=== PATIENT | male | born 1990 | race Caucasian/White ===

== ENCOUNTER 2017-06-23 22:44 | Emergency (ER) | payer OTHER ==
[~2017-06-23] VITALS: Ht 172.7 cm; Wt 70.3 kg
[2017-06-23] MEDS ORDERED: cefTRIAXone IM 1 GM VIAL IM ONE ×2 (23:15→23:42)
[2017-06-23] MEDS ORDERED: KETOROLAC 60 MG/2 ML VIAL. IM ONE ×2 (23:15→23:41)
[2017-06-23] MEDS ORDERED: ALPRAZolam 0.5 MG TABLET PO ONE (23:15)
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
[2017-06-23] MEDS ORDERED: ALPRAZolam 0.25 MG TABLET ONE (23:41)
[2017-06-24] MEDS ORDERED: SILV20CR14 TP (00:28)
[2017-06-24] MEDS ORDERED: ALPR0.5T6 PO (00:28)
[2017-06-24] MEDS ORDERED: silver sulfADIAZINE 1% CREAM 50GM JAR. TP ONE ×2 (00:30→00:35)
[2017-06-24 01:00] VITALS: BP 128/70
== END 2017-06-24 01:05 | disposition home or self-care (01) ==
LOC: ER 22:44
DX: T23.231A Burn of second degree of multiple right fingers (nail), not including thumb, initial encounter (principal); T23.002A Burn of unspecified degree of left hand, unspecified site, initial encounter; F17.210 Nicotine dependence, cigarettes, uncomplicated; X10.2XXA Contact with fats and cooking oils, initial encounter; Y93.89 Activity, other specified; Y99.8 Other external cause status; Y92.89 Other specified places as the place of occurrence of the external cause
CPT/HCPCS: 16020; 96372; 99285; J0696; J1885

== ENCOUNTER 2017-10-15 19:50 | Emergency (ER) | payer OTHER ==
[~2017-10-15] VITALS: Ht 172.7 cm; Wt 65.8 kg
[2017-10-15 19:50] VITALS: BP 126/66
[~2017-10-15 19:50] MED LIST: ALPR0.5T6 PO; SILV20CR14 TP
--- NOTE | 2017-10-15 19:53 | ED.ADGEN ---
Past History Past Medical History: No Pertinent History Alcohol Use: Occasionally Drug Use: None Adult General Chief Complaint Chief Complaint " I ve had MRSA before.. and I got these two bug bites.. lt hand.. but the worse one is on my thigh...Lt. .." HPI HPI Patient is a 27 year old male who presents with cellulitis of Lt 5th MCP joint and Lt Thigh. Pt. stated area cellulitis colitis started with an insect bite. Patient has had MRSA... No striations or adenopathy. He denies immunosuppression. Patient states his tetanus is up-to-date as of 2 years ago.. Patient does smoke. No recent travel. No ill contacts. Review of Systems Review of Systems Constitutional: Denies fever or chills [] Eyes: Denies change in visual acuity, redness, or eye pain [] HENT: Denies nasal congestion or sore throat [] Respiratory: Denies cough or shortness of breath [] Cardiovascular: No additional information not addressed in HPI [] GI: Denies abdominal pain, nausea, vomiting, bloody stools or diarrhea [] : Denies dysuria or hematuria [] Musculoskeletal: Denies back pain or joint pain [] Integument: Denies rash . Two areas skin lesions and cellulitis. Neurologic: Denies headache, focal weakness or sensory changes [] Endocrine: Denies polyuria or polydipsia [] All other systems were reviewed and found to be within normal limits, except as documented in this note. Family History Family History Non-contributory Current Medications Current Medications Current Medications Medications (Trade) Dose Ordered Sig/Tirso Start Time Stop Time Status Last Admin Dose Admin Ceftriaxone Sodium (Rocephin Im) 1 gm 1X ONCE 10/15/17 21:00 10/15/17 21:01 DC 10/15/17 21:02 1 GM Trimethoprim/ Sulfamethoxazole (Bactrim Ds) 1 tab 1X ONCE 10/15/17 21:00 10/15/17 21:01 DC 10/15/17 21:01 1 TAB Allergies Allergies Allergies Coded Allergies Type Severity Reaction Last Updated Verified No Known Drug Allergies 10/15/17 No Physical Exam Physical Exam Constitutional: Well developed, well nourished, no acute distress, non-toxic appearance. [] HENT: Normocephalic, atraumatic, bilateral external ears normal, oropharynx moist, no oral exudates, nose normal. [] Eyes: PERRLA, EOMI, conjunctiva normal, no discharge. [] Neck: Normal range of motion, no tenderness, supple, no stridor. [] Cardiovascular:Heart rate regular rhythm, no murmur [] Lungs & Thorax: Bilateral breath sounds equal with scattered wheezes on auscultation [] Abdomen: Bowel sounds normal, soft, no tenderness, no masses, no pulsatile masses. [] Skin: Warm, dry, no erythema, no rash. Two lesions as per HPI Back: No tenderness, no CVA tenderness. [] Extremities: No tenderness, no cyanosis, no clubbing, ROM intact, no edema. [] Neurologic: Alert and oriented X 3, normal motor function, normal sensory function, no focal deficits noted. [] Psychologic: Affect normal, judgement normal, mood normal. [] Current Patient Data Vital Signs Vital Signs Date Time Temp Pulse Resp B/P (MAP) Pulse Ox O2 Delivery O2 Flow Rate FiO2 10/15/17 19:50 97.9 107 20 98 Room Air EKG EKG [] Radiology/Procedures Radiology/Procedures [] Course & Med Decision Making Course & Med Decision Making Pertinent Labs and Imaging studies reviewed. (See chart for details) Bactrim DS twice a day x 10 days. Polysporin 4 x days. Must follow up with primary. Encourage pt to stop smoking. [] Final Impression Final Impression 1. MRSA- suspect 2. Insect Bite 3. Cellulitis[] Problems: Dragon Disclaimer Dragon Disclaimer This electronic medical record was generated, in whole or in part, using a voice recognition dictation system. SAMUEL KLINE MD Oct 15, 2017 19:52
[2017-10-15] MEDS ORDERED: SULF1TAB24 PO (20:36)
[2017-10-15] MEDS ORDERED: SMZ/TMP 800/160MG TABLET. PO ONE (21:00)
[2017-10-15] MEDS ORDERED: cefTRIAXone IM 1 GM VIAL IM ONE (21:00)
== END 2017-10-15 21:09 | disposition home or self-care (01) ==
LOC: ER 19:50
DX: L03.116 Cellulitis of left lower limb (principal); S70.362A Insect bite (nonvenomous), left thigh, initial encounter; S60.467A Insect bite (nonvenomous) of left little finger, initial encounter; Z86.14 Personal history of Methicillin resistant Staphylococcus aureus infection; W57.XXXA Bitten or stung by nonvenomous insect and other nonvenomous arthropods, initial encounter; Y93.89 Activity, other specified; Y99.8 Other external cause status; Y92.89 Other specified places as the place of occurrence of the external cause
CPT/HCPCS: 96372; 99283; J0696

== ENCOUNTER 2018-10-06 15:39 | Emergency (ER) | payer SELFPAY ==
[~2018-10-06] VITALS: Ht 325.1 cm; Wt 65.8 kg
[~2018-10-06 15:39] MED LIST changes: +SULF1TAB24 PO
[2018-10-06 15:54] VITALS: BP 141/74
[2018-10-06] MEDS ORDERED: CLINDAMYCIN 900 MG/6 ML VIAL. IM ONE (16:00)
[2018-10-06] MEDS ORDERED: DEXAMETHASONE SOD PHOS 10 MG/ML VIAL IM ONE (16:00)
[2018-10-06] MEDS ORDERED: DEXAMETHASONE SOD PHOS 10 MG/ML VIAL ONE (16:07)
[2018-10-06] MEDS ORDERED: CLINDAMYCIN 900MG PREMIX 50 ML IV ONE ×2 (16:12→16:15)
[2018-10-06] MEDS ORDERED: DEXAMETHASONE SOD PHOS 10 MG/ML VIAL IV ONE (16:15)
[2018-10-06] MEDS ORDERED: SULF1TAB24 PO (16:28)
[2018-10-06] MEDS ORDERED: ACET-704 PO (16:28)
--- NOTE | 2018-10-06 16:29 | PHYS DOC ---
Past History Past Medical History: No Pertinent History Past Surgical History: No Surgical History Alcohol Use: None Drug Use: None Adult General Chief Complaint Chief Complaint: FACE PROBLEM HPI HPI Patient is a 28-year-old male who presents with complaint of infection to his left cheek. Patient states that he has a history of staph infection in the past and he believes that he has a staph infection again. He denies any fever. He states that the infection started 2 days ago and had gotten much worse today. He rates pain as being moderate. He denies any nausea or vomiting. Review of Systems Review of Systems Constitutional: Denies fever or chills [] Respiratory: Denies cough or shortness of breath [] Cardiovascular: No additional information not addressed in HPI [] Integument: There is erythema, swelling and induration noted to the left mandibular area of cheek extending down to neck. No evidence of abscess is present.[] Neurologic: Denies headache, focal weakness or sensory changes [] Current Medications Current Medications Current Medications Medications (Trade) Dose Ordered Sig/Tirso Start Time Stop Time Status Last Admin Dose Admin Clindamycin Phosphate (Cleocin) 900 mg 1X ONCE 10/06/18 16:00 10/06/18 16:01 UNV Dexamethasone Sodium Phosphate (Decadron) 10 mg 1X ONCE 10/06/18 16:00 10/06/18 16:01 Allergies Allergies Allergies Coded Allergies Type Severity Reaction Last Updated Verified No Known Drug Allergies 10/15/17 No Physical Exam Physical Exam Constitutional: Well developed, well nourished, no acute distress, non-toxic appearance. [] Neck: Normal range of motion, no tenderness, supple, no stridor. [] Cardiovascular:Heart rate regular rhythm, no murmur [] Lungs & Thorax: Bilateral breath sounds clear to auscultation [] Skin: Left cheek and over lying mandible demonstrates erythema, warmth, induration and tenderness. No fluctuance is noted. The area measures approximately 8 x 10 cm. [] Back: No tenderness, no CVA tenderness. [] Extremities: No tenderness, no cyanosis, no clubbing, ROM intact, no edema. [] Current Patient Data Vital Signs Vital Signs Date Time Temp Pulse Resp B/P (MAP) Pulse Ox O2 Delivery O2 Flow Rate FiO2 10/06/18 15:54 98.6 87 16 97 Room Air EKG EKG [] Radiology/Procedures Radiology/Procedures [] Course & Med Decision Making Course & Med Decision Making Pertinent Labs and Imaging studies reviewed. (See chart for details) [] Dragon Disclaimer Dragon Disclaimer This electronic medical record was generated, in whole or in part, using a voice recognition dictation system. Departure Departure: Impression: Primary Impression: Facial cellulitis Disposition: HOME, SELF-CARE Condition: STABLE Referrals: PCP,NO (PCP) Patient Instructions: Cellulitis Scripts Acetaminophen With Codeine (TYLENOL WITH CODEINE #3 TABLET) 1 Each Tablet 1 TAB PO Q6HRS PRN for PAIN, #15 TAB Prov: KATHERINE LAUREANO Jr. DO 10/06/18 Sulfamethoxazole/Trimethoprim (BACTRIM DS TABLET) 1 Each Tablet 1 EACH PO TID for infection, #30 TAB Prov: KATHERINE LAUREANO Jr. DO 10/06/18 KATHERINE LAUREANO Jr. DO Oct 06, 2018 16:29
== END 2018-10-06 16:51 | disposition home or self-care (01) ==
LOC: ER 15:39
DX: L03.211 Cellulitis of face (principal)
CPT/HCPCS: 96365; 96375; 99284; J1100; J3490

== ENCOUNTER 2018-11-29 17:44 | Emergency (ER) | payer SELFPAY ==
[~2018-11-29] VITALS: Ht 325.1 cm; Wt 80.4 kg
[~2018-11-29 17:44] MED LIST changes: +ACET-704 PO
--- NOTE | 2018-11-29 18:26 | PHYS DOC ---
Past History Past Medical History: No Pertinent History Past Surgical History: No Surgical History Alcohol Use: None Drug Use: None Adult General Chief Complaint Chief Complaint: SKIN PROBLEM HPI HPI 28-year-old male presents with rash on his left face. Patient states that he started noticing a rash 3 days ago. It has spread along the mandible and the second scab closer to his ear. He noticed that it is red and swollen. He does have a history of MRSA infection in the past, though not on his face. There is a nguyen crusting around the lower scab. He denies any drainage from the rash. Denies fever or chills at home. Review of Systems Review of Systems Constitutional: Denies fever or chills [] Eyes: Denies change in visual acuity, redness, or eye pain [] HENT: Denies nasal congestion or sore throat [] Respiratory: Denies cough or shortness of breath [] Cardiovascular: No additional information not addressed in HPI [] GI: Denies abdominal pain, nausea, vomiting, bloody stools or diarrhea [] : Denies dysuria or hematuria [] Musculoskeletal: Denies back pain or joint pain [] Integument: Erythematous skin on the left face, warm to the touch,: Crusting around the central scab. Overall area 4 cm x 5 cm. Second 0.5 cm scab superior to the lower scab with some purulent drainage.[] Neurologic: Denies headache, focal weakness or sensory changes [] Endocrine: Denies polyuria or polydipsia [] All other systems were reviewed and found to be within normal limits, except as documented in this note. Allergies Allergies Allergies Coded Allergies Type Severity Reaction Last Updated Verified No Known Drug Allergies 10/15/17 No Physical Exam Physical Exam Constitutional: Well developed, well nourished, no acute distress, non-toxic appearance. [] HENT: Normocephalic, atraumatic, bilateral external ears normal, oropharynx moist, no oral exudates, nose normal. [] Eyes: PERRLA, EOMI, conjunctiva normal, no discharge. [] Neck: Normal range of motion, no tenderness, supple, no stridor. [] Cardiovascular:Heart rate regular rhythm, no murmur [] Lungs & Thorax: Bilateral breath sounds clear to auscultation [] Abdomen: Bowel sounds normal, soft, no tenderness, no masses, no pulsatile masses. [] Skin: Warm, dry, no erythema, no rash. [] Back: No tenderness, no CVA tenderness. [] Extremities: No tenderness, no cyanosis, no clubbing, ROM intact, no edema. [] Neurologic: Alert and oriented X 3, normal motor function, normal sensory function, no focal deficits noted. [] Psychologic: Affect normal, judgement normal, mood normal. [] Current Patient Data Vital Signs Vital Signs Date Time Temp Pulse Resp B/P (MAP) Pulse Ox O2 Delivery O2 Flow Rate FiO2 11/29/18 17:44 98.1 85 18 97 Room Air EKG EKG [] Radiology/Procedures Radiology/Procedures [] Course & Med Decision Making Course & Med Decision Making Pertinent Labs and Imaging studies reviewed. (See chart for details) The patient's wound appears to be consistent with strep infection. I was able to express some purulent fluid from the the superior lesion. Given the patient' s history of staph infection, it is possible he has posterior and staph infection. I will treat him with Keflex and Bactrim for 7 days. He is stable for discharge at this time. [] Dragon Disclaimer Dragon Disclaimer This electronic medical record was generated, in whole or in part, using a voice recognition dictation system. Departure Departure: Impression: Primary Impression: Cellulitis and abscess of face Disposition: 01 HOME, SELF-CARE Condition: STABLE Referrals: PCP,NO (PCP) Patient Instructions: Cellulitis, [id number] Scripts Cephalexin (KEFLEX) 500 Mg Capsule 1 CAP PO TID for infection, #21 CAP Prov: TAMANNA SHABAZZ DO 11/29/18 Sulfamethoxazole/Trimethoprim (BACTRIM DS TABLET) 1 Each Tablet 2 TAB PO BID for infection, #14 TAB Prov: TAMANNA SHABAZZ DO 11/29/18 TAMANNA SHABAZZ DO Nov 29, 2018 18:26
[2018-11-29] MEDS ORDERED: CEPH-264 PO (18:27)
[2018-11-29] MEDS ORDERED: SULF1TAB24 PO (18:27)
[2018-11-29 18:32] VITALS: BP 153/71
== END 2018-11-29 18:30 | disposition home or self-care (01) ==
LOC: ER 17:44
DX: L03.211 Cellulitis of face (principal); L02.01 Cutaneous abscess of face
CPT/HCPCS: 87070; 99283

== ENCOUNTER 2019-01-25 15:34 | Emergency (ER) | payer SELFPAY ==
[~2019-01-25] VITALS: Ht 172.7 cm; Wt 72.9 kg
[~2019-01-25 15:34] MED LIST changes: +CEPH-264 PO
[2019-01-25 15:42] VITALS: BP 123/71
[2019-01-25] MEDS ORDERED: SULF1TAB24 PO (16:41)
[2019-01-25] MEDS ORDERED: MELO7.5T29 PO (16:41)
--- NOTE | 2019-01-25 16:41 | PHYS DOC ---
Past History Past Medical History: No Pertinent History Past Surgical History: No Surgical History Alcohol Use: None Drug Use: None Adult General Chief Complaint Chief Complaint: SKIN PROBLEM HPI HPI Patient is a 28-year-old male who presents complaining of a left forearm infection. This started several days ago. He noted purulent drainage from it yesterday that has improved today but continued pain, redness, and swelling. Patient denies any fever. Denies any axillary pain. Denies any trauma. Reports his last tetanus vaccine was proximally 2 years ago.[] Review of Systems Review of Systems Constitutional: Denies fever or chills [] Eyes: Denies change in visual acuity, redness, or eye pain [] HENT: Denies nasal congestion or sore throat [] Respiratory: Denies cough or shortness of breath [] Cardiovascular: No chest pain or palpitations[] GI: Denies abdominal pain, nausea, vomiting, bloody stools or diarrhea [] : Denies dysuria or hematuria [] Musculoskeletal: Denies back pain or joint pain [] Integument: Denies rash, see history of present illness[] Neurologic: Denies headache, focal weakness or sensory changes [] Endocrine: Denies polyuria or polydipsia [] All other systems were reviewed and found to be within normal limits, except as documented in this note. Allergies Allergies Allergies Coded Allergies Type Severity Reaction Last Updated Verified I S O L A T I O N *CONTACT* Allergy Unknown 12/04/18 Yes NKMA Allergy Unknown 12/04/18 Yes Physical Exam Physical Exam Constitutional: Well developed, well nourished, no acute distress, non-toxic appearance. [] HENT: Normocephalic, atraumatic, bilateral external ears normal, oropharynx moist, no oral exudates, nose normal. [] Eyes: PERRLA, EOMI, conjunctiva normal, no discharge. [] Neck: Normal range of motion, no tenderness, supple, no stridor. [] Cardiovascular:Heart rate regular rhythm, no murmur [] Lungs & Thorax: Bilateral breath sounds clear to auscultation [] Abdomen: Not examined. [] Skin: Warm, dry, erythema and induration present on the left forearm, volar/ ulnar surface. 7.5 cm in diameter. No fluctuance. Patient is distal neurovascularly intact. No axillary lymphadenopathy., no rash. [] Back: No tenderness, no CVA tenderness. [] Extremities: No tenderness, no cyanosis, no clubbing, ROM intact, no edema. [] Neurologic: Alert and oriented X 3, normal motor function, normal sensory function, no focal deficits noted. [] Psychologic: Affect normal, judgement normal, mood normal. [] Current Patient Data Vital Signs Vital Signs Date Time Temp Pulse Resp B/P (MAP) Pulse Ox O2 Delivery O2 Flow Rate FiO2 01/25/19 15:42 97.4 92 99 Room Air EKG EKG [] Radiology/Procedures Radiology/Procedures [] Course & Med Decision Making Course & Med Decision Making Pertinent Labs and Imaging studies reviewed. (See chart for details) ED course and medical decision making: Patient arrived, was placed in bed, and tolerated exam well. Patient has been on no recent antibiotics. Will cover patient for possibility of staph infection since he has had them previously. Discussed plan with patient voiced understanding. All questions were answered. Patient was discharged in improved condition.[] Dragon Disclaimer Dragon Disclaimer This electronic medical record was generated, in whole or in part, using a voice recognition dictation system. Departure Departure: Impression: Primary Impression: Cellulitis Disposition: HOME, SELF-CARE Condition: IMPROVED Referrals: PCP,NANCY (PCP) Patient Instructions: Cellulitis Additional Instructions: Follow-up with your regular doctor in 2 days. If you do not have a regular doctor a list of local clinics will be provided for you. Keep the area clean and dry. Apply warm compresses 4 times a day for 15 minutes at a time. Stop smoking. Take the medication as prescribed. Return to the ER if worsening pain or any other concerns. Scripts Meloxicam (MELOXICAM) 7.5 Mg Tablet 7.5 MG PO DAILY for PAIN, #20 TAB Prov: JOVITA CASTREJON DO 01/25/19 Sulfamethoxazole/Trimethoprim (BACTRIM DS TABLET) 1 Each Tablet 1 TAB PO BID for cellulitis, #20 TAB Prov: JOVITA CASTREJON DO 01/25/19 Problem Qualifiers Primary Impression: Cellulitis Site of cellulitis: extremity Site of cellulitis of extremity: upper extremity Laterality: left Qualified Codes: L03.114 - Cellulitis of left upper limb JOVITA CASTREJON DO Jan 25, 2019 16:41
== END 2019-01-25 16:44 | disposition home or self-care (01) ==
LOC: ER 15:34
DX: L03.114 Cellulitis of left upper limb (principal); Z91.041 Radiographic dye allergy status
CPT/HCPCS: 99283

== ENCOUNTER 2019-03-21 09:15 | Emergency (ER) | payer SELFPAY ==
[~2019-03-21 09:15] MED LIST changes: +MELO7.5T29 PO
--- NOTE | 2019-03-21 12:58 | RAD ---
EXAM: Bilateral wrists, 3 views. HISTORY: Fall. COMPARISON: None. FINDINGS: 3 views of both wrists are obtained. There is no fracture, dislocation or subluxation. The alignment and joint spaces are unremarkable. IMPRESSION: No acute osseous finding. Electronically signed by: Esthela oByd MD (03/21/2019 12:55 PM) [facility]
--- NOTE | 2019-03-21 13:00 | RAD ---
EXAM: Bilateral shoulders, 3 views. HISTORY: Pain. Fall. COMPARISON: None. FINDINGS: 3 views of both shoulders are obtained. There is no acute fracture, dislocation or subluxation. There are suspected healed right sixth and seventh rib fractures. IMPRESSION: No acute osseous finding. Electronically signed by: Esthela Boyd MD (03/21/2019 12:57 PM) [facility]
--- NOTE | 2019-03-21 13:00 | RAD ---
EXAM: Right ankle, 3 views. HISTORY: Fall. Pain. COMPARISON: None. FINDINGS: 3 views of the right ankle are obtained. There is no fracture, dislocation or subluxation. There is a corticated ossicle inferior to the medial malleolus, likely developmental or due to the sequela of remote injury. The ankle mortise is intact. No osteochondral lesion is seen. IMPRESSION: No acute osseous finding. Electronically signed by: Esthela Boyd MD (03/21/2019 12:56 PM) [place] [id number]
== END 2019-03-21 10:45 | disposition home or self-care (01) ==
LOC: ER 09:15
DX: S40.011A Contusion of right shoulder, initial encounter (principal); S60.212A Contusion of left wrist, initial encounter; S60.211A Contusion of right wrist, initial encounter; L03.114 Cellulitis of left upper limb; L03.113 Cellulitis of right upper limb; M25.571 Pain in right ankle and joints of right foot; W18.39XA Other fall on same level, initial encounter; Y93.02 Activity, running; Y92.89 Other specified places as the place of occurrence of the external cause; Y99.8 Other external cause status
CPT/HCPCS: 73030; 73110; 73600; 99284

== ENCOUNTER 2020-01-07 14:27 | Emergency (ER) | payer SELFPAY ==
[~2020-01-07] VITALS: Ht 172.7 cm; Wt 72.9 kg
[2020-01-07 15:07] VITALS: BP 143/89
[2020-01-07] MEDS ORDERED: LIDOCAINE 1% Multi-Dose 20 ML VIAL. ONE (15:10)
[2020-01-07] MEDS ORDERED: LIDOCAINE 1% PF 30 ML VIAL. INJ ONE (15:15)
[2020-01-07] MEDS ORDERED: SMZ/TMP 800/160MG TABLET. PO ONE (16:00)
[2020-01-07] MEDS ORDERED: CEPHALEXIN 250 MG CAPSULE PO ONE (16:00)
[2020-01-07] MEDS ORDERED: ceFAZolin SODIUM 2 GM in IV DEXTROSE 5% 50 ML IV ONE (16:00)
[2020-01-07] MEDS ORDERED: VANCOMYCIN 1 GM in IV NORMAL SALINE 250ML 250 ML IV ONE (16:00)
[2020-01-07] MEDS ORDERED: IBUP800T19 PO (16:11)
[2020-01-07] MEDS ORDERED: CEPH-263 PO (16:11)
[2020-01-07] MEDS ORDERED: SULF1TAB24 PO (16:11)
--- NOTE | 2020-01-07 16:11 | PHYS DOC ---
Past History Past Medical History: No Pertinent History Past Surgical History: No Surgical History Alcohol Use: None Drug Use: None Adult General Chief Complaint Chief Complaint: WOUND CHECK HPI HPI Patient is a 29-year-old male who presented to ER today for evaluation of abscess on his right hand and left thigh area. 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 Patient denies any recent IV drug injection. Patient denies any fever, no chest pain, no trouble breathing. He is up-to-date with vaccinations status. Review of Systems Review of Systems aLL OTHER ros IS NEGATIVE UNLESS OTHERWISE NOTED IN hpi Current Medications Current Medications Current Medications Medications (Trade) Dose Ordered Sig/Tirso Start Time Stop Time Status Last Admin Dose Admin Cefazolin Sodium 2 gm/Dextrose 50 ml @ 100 mls/hr 1X ONCE 01/07/20 16:00 01/07/20 16:29 Cancel Cephalexin HCl (Keflex) 1,000 mg 1X ONCE 01/07/20 16:00 01/07/20 16:01 DC Lidocaine HCl 20 ml STK-MED ONCE 01/07/20 15:10 01/07/20 15:11 DC Lidocaine HCl (Lidocaine 1% Pf) 30 ml 1X ONCE 01/07/20 15:15 01/07/20 15:16 DC Trimethoprim/ Sulfamethoxazole (Bactrim Ds) 1 tab 1X ONCE 01/07/20 16:00 01/07/20 16:01 DC Vancomycin HCl 1 gm/Sodium Chloride 250 ml @ 250 mls/hr 1X ONCE 01/07/20 16:00 01/07/20 15:53 DC Allergies Allergies Allergies Coded Allergies Type Severity Reaction Last Updated Verified I S O L A T I O N *CONTACT* Allergy Unknown 12/04/18 Yes NKMA Allergy Unknown 12/04/18 Yes Physical Exam Physical Exam See above Constitutional: Well developed, well nourished, no acute distress, non-toxic appearance. [] HENT: Normocephalic, atraumatic, bilateral external ears normal, oropharynx moist, no oral exudates, nose normal. [] Eyes: PERRLA, EOMI, conjunctiva normal, no discharge. [] Neck: Normal range of motion, no tenderness, supple, no stridor. [] Cardiovascular:Heart rate regular rhythm, no murmur [] Lungs & Thorax: Bilateral breath sounds clear to auscultation [] Abdomen: Bowel sounds normal, soft, no tenderness, no masses, no pulsatile masses. [] Skin: THERE IS LARGE TENDER ABSCESS ON LEFT LATERAL THIGH AREA about 6 cm by 6 CM. THERE IS MODERATE SIZE WOUND (3 CM BY 3 CM) ON THE LATERAL PART OF RIGHT HAND ALONG THE RIGHT 1ST METACARPAL AREA. PATIENT CAN MOVE HIS RIGHT THUMB IN ALL DIRECTION WITHOUT ANY PROBLEM. Back: No tenderness, no CVA tenderness. [] Extremities: No tenderness, no cyanosis, no clubbing, ROM intact, no edema. [] Neurologic: Alert and oriented X 3, normal motor function, normal sensory function, no focal deficits noted. [] Psychologic: Affect normal, judgement normal, mood normal. [] Current Patient Data Vital Signs Vital Signs Date Time Temp Pulse Resp B/P (MAP) Pulse Ox O2 Delivery O2 Flow Rate FiO2 01/07/20 15:07 97.8 117 18 143/89 (107) 97 Room Air EKG EKG [] Radiology/Procedures Radiology/Procedures [] Course & Med Decision Making Course & Med Decision Making Pertinent Labs and Imaging studies reviewed. (See chart for details) Patient did not want IV vancomycin or IV Ancef in the ER, he only one by mouth treatment at this time. Patient was discharged home with prescription for BACTRIM DS and Keflex. He will need to follow with her doctor in today for reevaluation. Dragon Disclaimer Dragon Disclaimer This electronic medical record was generated, in whole or in part, using a voice recognition dictation system. Departure Departure: Impression: Primary Impression: Abscess of right hand Additional Impression: Abscess of left thigh Disposition: 01 HOME, SELF-CARE Condition: STABLE Referrals: PCP,NO (PCP) FOLLOW UP WITH YOUR DOCTOR IN 2 DAYS FOR WOUND RECHECK Patient Instructions: Abscess, Abscess, Care After Additional Instructions: Thank you for visiting our Emergency Department. We appreciate you trusting us with your care. If any additional problems come up don't hesitate to return to visit us. Please follow up with your primary care provider so they can plan additional care if needed and know about the problem that you had. If symptoms worsen come back to the Emergency Department. Any concerning symptoms that start such as chest pain, shortness of air, weakness or numbness on one side of the body, running high fevers or any other concerning symptoms return to the ER. Scripts Ibuprofen (IBUPROFEN) 800 Mg Tablet 1 TAB PO TID for PAIN, #30 TAB Prov: LORETTA MACARIO DO 01/07/20 Cephalexin (KEFLEX) 250 Mg Capsule 1 CAP PO QID for ABSCESS for 10 Days, #40 CAP 0 Refills Prov: LORETTA MACARIO DO 01/07/20 Sulfamethoxazole/Trimethoprim (BACTRIM DS TABLET) 1 Each Tablet 1 TAB PO BID for ABSCESS for 14 Days, #28 TAB 0 Refills Prov: LORETTA MACARIO 01/07/20 Incision and Drainage Indication: [ABSCESS ON RIGHT HAND] Procedure: The patient was positioned appropriately and the skin over the incision site was CLEANED WITH BETADINE. Local anesthesia was USED, 8 ML OF 1% LIDOCAINE, INJECTED INTO AND AROUND THE WOUND. An incision was then made over the WOUND ON RIGHT HAND ALONG THE LATERAL SURFACE OF RIGHT METACARPAL AREA, USING A # 11 SCAPEL and LARGE AMOUNT OF YELLOW material was expressed. Loculations were BROKEN BY STEVEN FUR SEWER. The drainage cavity was then FLUSHED WITH SALINE. The patients tetanus status UP TO DATE. The patient tolerated the procedure WELL. THE WOUND WAS DRESSING UP WITH GAUZE. Complications: NONE. Incision and Drainage Indication: [ABSCESS ON LEFT LATERAL THIGH AREA:] Procedure: The patient was positioned appropriately and the skin over the inci kathy site was CLEANED WITH BETADINE. Local anesthesia was 10 ML OF 1% LIDOCAINE WAS INJECTED INTO THE WOUND. An incision was then made over the WOUND WITH # 11 SCAPEL and LARGE AMOUNT OF YELL material was expressed. Loculations were BROKEN BY SHELL FUR SEWER. The drainage cavity was then IRRIGATED WITH SALINE. The patients tetanus status UP TO DATE. The patient tolerated the procedure WELL. Complications: NO COMPLICATION. Problem Qualifiers LORETTA MACARIO Jan 07, 2020 16:11
== END 2020-01-07 16:21 | disposition home or self-care (01) ==
LOC: ER 14:27
DX: L02.416 Cutaneous abscess of left lower limb (principal); L02.511 Cutaneous abscess of right hand
CPT/HCPCS: 10061; 99284

== ENCOUNTER 2020-06-17 15:47 | Emergency (ER) | payer SELFPAY ==
[~2020-06-17] VITALS: Ht 172.7 cm; Wt 77.3 kg
[~2020-06-17 15:47] MED LIST changes: +CEPH-263 PO; +IBUP800T19 PO
[2020-06-17] MEDS ORDERED: IV NORMAL SALINE 1,000ML 1,000 ML IV ONE (16:15)
--- NOTE | 2020-06-17 16:18 | PHYS DOC ---
Past History Past Medical History: Other Additional Past Medical Histor: Previous IV Drug Abuse Past Surgical History: No Surgical History Alcohol Use: None Drug Use: None General Adult EDM: Chief Complaint: SKIN PROBLEM HPI: HPI: 30-year-old male presents with left lower leg cellulitis. He states that it got red and swollen about 3 days ago. Is gotten worse since that time. He did have an anterior pus pocket that drained. He also has a ulcerative lesion over the left lateral malleolus. The entire surrounding area and lower leg below the knee is erythematous and warm. Patient denies fever or chills. He has a history of staph infection. He is a former IV drug user. He has no other complaints at this time. Review of Systems: Review of Systems: Constitutional: Denies fever or chills Eyes: Denies change in visual acuity HENT: Denies nasal congestion or sore throat Respiratory: Denies cough or shortness of breath Cardiovascular: Denies chest pain or edema GI: Denies abdominal pain, nausea, vomiting, bloody stools or diarrhea : Denies dysuria Musculoskeletal: Denies back pain or joint pain Integument: Cellulitis left lower leg Neurologic: Denies headache, focal weakness or sensory changes Endocrine: Denies polyuria or polydipsia Lymphatic: Denies swollen glands Psychiatric: Denies depression or anxiety Heart Score: Risk Factors: Risk Factors: DM, Current or recent (<one month) smoker, HTN, HLP, family history of CAD, obesity. Risk Scores: Score 0 - 3: 2.5% MACE over next 6 weeks - Discharge Home Score 4 - 6: 20.3% MACE over next 6 weeks - Admit for Clinical Observation Score 7 - 10: 72.7% MACE over next 6 weeks - Early Invasive Strategies Current Medications: Current Meds: Current Medications Medications (Trade) Dose Ordered Sig/Tirso Start Time Stop Time Status Last Admin Dose Admin Sodium Chloride 1,000 ml @ 1,000 mls/hr 1X ONCE 06/17/20 16:15 06/17/20 17:14 Allergies: Allergies: Allergies Coded Allergies Type Severity Reaction Last Updated Verified I S O L A T I O N *CONTACT* Allergy Unknown 12/04/18 Yes NKMA Allergy Unknown 12/04/18 Yes Physical Exam: PE: Constitutional: Well developed, well nourished, no acute distress, non-toxic appearance. [] HENT: Normocephalic, atraumatic, bilateral external ears normal, oropharynx moist, no oral exudates, nose normal. [] Eyes: PERRLA, EOMI, conjunctiva normal, no discharge. [] Neck: Normal range of motion, no tenderness, supple, no stridor. [] Cardiovascular:Heart rate regular rhythm, no murmur [] Lungs & Thorax: Bilateral breath sounds clear to auscultation [] Abdomen: Bowel sounds normal, soft, no tenderness, no masses, no pulsatile masses. [] Skin: Erythematous, hot, 3+ pitting edema left lower extremity. 2 areas of drainage on the left lower leg currently serosanguineous. [] Back: No tenderness, no CVA tenderness. [] Extremities: No tenderness, no cyanosis, no clubbing, ROM intact, no edema. [] Neurologic: Alert and oriented X 3, normal motor function, normal sensory function, no focal deficits noted. [] Psychologic: Affect normal, judgement normal, mood normal. [] Current Patient Data: Vital Signs: Vital Signs Date Time Temp Pulse Resp B/P (MAP) Pulse Ox O2 Delivery O2 Flow Rate FiO2 06/17/20 16:00 98.4 113 16 149/75 (99) 100 Room Air EKG: EKG: [] Radiology/Procedures: Radiology/Procedures: [] Impressions: Examination: Unilateral venous Doppler. Technique: Ultrasound evaluation of the left lower extremity was performed from the groin to the upper calf with early scale, spectral and color doppler evaluation. Indication: Leg swelling, infection Comparison: None Findings: There is normal venous flow and compressibility of left common femoral vein, femoral vein, popliteal vein, and visualized proximal calf veins. Prominent left inguinal lymph nodes are seen, communications representative lymph node measures 1.9 x 1.2 x 0.7 cm. Impression: 1. No evidence for deep vein thrombosis of left lower extremity from the level of the calf veins to the groins. 2. Prominent left inguinal lymph nodes are seen. Electronically signed by: Dhaval Chaves MD (06/17/2020 4:58 PM) [facility] DICTATED AND SIGNED BY: DHAVAL CHAVES MD DATE: 06/17/20 2805 CC: TAMANAN SHABAZZ DO; PCP,NO ~ Course & Med Decision Making: Course & Med Decision Making Pertinent Labs and Imaging studies reviewed. (See chart for details) The patient's ultrasound is negative for DVT. His white count is normal. His other labs are essentially unremarkable. I will treat him with 1 g of Rocephin IV prior to discharge. I will then give him 10 days of Bactrim DS twice daily. He is stable for discharge at this time. [] Dragon Disclaimer: Dragon Disclaimer: This electronic medical record was generated, in whole or in part, using a voice recognition dictation system. Departure Departure: Impression: Primary Impression: Cellulitis of left lower leg Disposition: HOME/RESIDENCE PRIOR TO ADM Condition: STABLE Referrals: PCP,NO (PCP) Patient Instructions: Cellulitis, [id number] Scripts Sulfamethoxazole/Trimethoprim (BACTRIM DS TABLET) 1 Each Tablet 1 TAB PO BID for cellulitis for 10 Days, #20 TAB 0 Refills Prov: TAMANNA SHABAZZ DO 06/17/20 Justification of Admission: Justification of Admission: Justification of Admission Dx: N/A TAMANNA SHABAZZ DO Jun 17, 2020 16:18
--- NOTE | 2020-06-17 17:01 | RAD ---
Examination: Unilateral venous Doppler. Technique: Ultrasound evaluation of the left lower extremity was performed from the groin to the upper calf with early scale, spectral and color doppler evaluation. Indication: Leg swelling, infection Comparison: None Findings: There is normal venous flow and compressibility of left common femoral vein, femoral vein, popliteal vein, and visualized proximal calf veins. Prominent left inguinal lymph nodes are seen, [employer] representative lymph node measures 1.9 x 1.2 x 0.7 cm. Impression: 1. No evidence for deep vein thrombosis of left lower extremity from the level of the calf veins to the groins. 2. Prominent left inguinal lymph nodes are seen. Electronically signed by: Dhaval Chaves MD (06/17/2020 4:58 PM) [facility]
[2020-06-17 17:07] LABS: BASO % 0 % (0-3); EOS % 1 % (0-3); HEMATOCRIT 32.7 % (39.0-53.0); HEMOGLOBIN 11.1 g/dL (13.0-17.5); LYMPH # 1.5 x10^3/uL (1.0-4.8); LYMPH % 15 % (24-48); MEAN CORPUSCULAR HEMOGLOBIN 28 pg (25-35); MEAN CORPUSCULAR HGB CONC 34 g/dL (31-37); MEAN CORPUSCULAR VOLUME 83 fL (79-100); MONO # 0.8 x10^3/uL (0.0-1.1); MONO % 8 % (0-9); NEUT # 7.8 x10^3uL (1.8-7.7); NEUT % 76 % (31-73); PLATELET COUNT 262 x10^3/uL (140-400); RED BLOOD COUNT 3.95 x10^6/uL (4.30-5.70); RED CELL DISTRIBUTION WIDTH 14.4 % (11.5-14.5); WHITE BLOOD COUNT 10.2 x10^3/uL (4.0-11.0)
[2020-06-17 17:14] LABS: CREATININE 1.1 mg/dL (0.7-1.3); GFR 78.1
[2020-06-17 17:19] LABS: ALBUMIN 3.3 g/dL (3.4-5.0); ALBUMIN/GLOBULIN RATIO 0.7 (1.0-1.7); TOTAL BILIRUBIN 0.6 mg/dL (0.2-1.0); TOTAL PROTEIN 7.9 g/dL (6.4-8.2)
[2020-06-17] MEDS ORDERED: SULF1TAB24 PO (17:23)
[2020-06-17] MEDS ORDERED: cefTRIAXone SODIUM 1 GM VIAL ONE ×2 (17:27→17:29)
[2020-06-17] MEDS ORDERED: IV NORMAL SALINE 50ML 50 ML ONE ×2 (17:27→17:29)
[2020-06-17 17:30] VITALS: BP 137/79
== END 2020-06-17 18:01 | disposition home or self-care (01) ==
LOC: ER 15:47
DX: L03.116 Cellulitis of left lower limb (principal); Z88.8 Allergy status to other drugs, medicaments and biological substances
CPT/HCPCS: 36415; 80053; 85025; 87040; 87070; 93971; 96365; 99284; J0696; J7030; 87077; 87186